=== PATIENT | male | born 1965 | race Caucasian/White ===

== ENCOUNTER 2023-10-20 07:50 | Outpatient (AMB) | payer MEDICAID, SELFPAY ==
--- NOTE | 2023-10-20 08:07 | A.OFFVIS_ITS ---
Intake Vital Signs 10/20/23 08:11 Height 5 ft 9 in Weight 196 lb BMI 28.9 BP 140/94 H Blood Pressure Location Lt brachial Position Sitting Pulse 115 H Intake Visit Reasons: Colonoscopy screening Intake Note: Patient 1st pre Colonoscopy screening. Patient denies any GI issues. Legal Administrator Required: Yes Legal Administrator Name: [id number] Accompanied by: Employee Allergies No Known Allergies Allergy (Verified 10/20/23 08:07) HPI HPI Comments History of Present Illness Details A 58 y/o male referred for colonoscopy- Accompanied by staff- he has a good appetite- has normal bowels . 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 [facility] Social History (Updated 10/20/23 @ 08:21 by Radha Longoria PA-C) Household Members Other:: [facility]-since 2010 Alcohol intake: never Patient Tobacco Use Status: Never used Tobacco Current occupational status: disabled Review of Systems Const Details: Per pt advocate - ROS negative Physical Exam Vital Signs: Last Vital Signs Pulse 115 H 10/20/23 08:11 BP 140/94 H 10/20/23 08:11 BMI result Body Mass Index 28.9 Const General: comfortable Nutritional Appearance: well nourished Limitations: altered mental status and language barrier Eyes Sclerae: sclerae normal Resp Effort & Inspection: normal respiratory effort Auscultation: clear to auscultation bilaterally, no rhonchi and no wheezes Cardio Rate: tachycardic Rhythm: regular rhythm Heart sounds: S1 normal heart sound present and S2 normal heart sound present GI Palpation (GI): Soft to palpation and nontender Auscultation: normal bowel sounds Skin General skin exam: no rashes or lesions noted Extrem General: Yes full ROM Psych Attitude: cooperative, Guarded attititude/behavior present and Avoids eye contact (attititude/behavior) Assessment & Plan Assessment & Plan (1) Poor historian: Comment: Unable to assess- pt advocate present- Code(s): Z78.9 - Other specified health status (2) Language barrier to communication: Code(s): Z78.9 - Other specified health status (3) Encounter for screening colonoscopy: Comment: Hold off on colonoscopy Code(s): Z12.11 - Encounter for screening for malignant neoplasm of colon Plan: cologuard- any input-will further discuss- (4) Unknown family medical history: Plan Cologuard- if positive - colonoscopy would to recommended Patient Instructions: Cologuard- if positive - colonoscopy would to recommended- Coding Level of Care Code New Pt Level 4 (60001) Diagnoses Poor historian Z78.9 Language barrier to communication Z78.9 Encounter for screening colonoscopy Z12.11 Unknown family medical history Time Spent (min) 30 Comment [id number]
[2023-10-20 08:11] VITALS: BP 140/94; PULSE 115; BMI 28.9
== END 2023-10-20 09:01 | disposition home or self-care (01) ==
PROVIDERS: PCP Hospitalist; Visit Provider Physician Assistant
DX: Z78.9 Other specified health status (principal); Z12.11 Encounter for screening for malignant neoplasm of colon
CPT/HCPCS: 99204

== ENCOUNTER → 2023-10-20 07:50 | Outpatient (BNVA) | payer MEDICAID, SELFPAY | PROVIDERS: PCP Hospitalist; Visit Provider Physician Assistant | DX: Z12.11 Encounter for screening for malignant neoplasm of colon (principal); Z78.9 Other specified health status | CPT/HCPCS: 99202 ==

== ENCOUNTER 2023-11-02 10:06 | Inpatient (IN) | payer MEDICAID, SELFPAY ==
[2023-11-02] VITALS (17 sets, daily range): BP systolic 112–138; BP diastolic 66–87; PULSE 95–119; RESP 14–28; TEMP 36.6–38.3; O2SAT 87–96; BMI 27.2
--- NOTE | ~2023-11-02 | CT_ITS ---
CT HEAD WITHOUT IV CONTRAST CT CERVICAL SPINE WITHOUT IV CONTRAST INDICATION: Fall. COMPARISON: None available. TECHNIQUE: Multidetector CT acquisitions of the head and cervical spine were obtained without IV contrast. Multiplanar reformats were acquired and utilized for image interpretation. This CT examination was performed using dose optimization techniques as appropriate, variously including the following: *Automated exposure control *Adjustment of mA and/or kV according to patient size (this includes techniques or standardized protocols for targeted exams where dose is matched to indication/reason for exam; i.e. extremities or head) *Use of iterative reconstruction technique FINDINGS: HEAD: There are postoperative changes following left parietotemporal craniotomy. There is chronic encephalomalacia and gliosis within the inferior right greater than left frontal lobe and the anterior left temporal lobe, likely the sequela of old trauma. There is severe lateral and third ventriculomegaly that is disproportionate to sulcal prominence with associated narrowing of the callosal angle that can be correlated for clinical signs of normal pressure hydrocephalus. There is no intracranial hemorrhage, hydrocephalus, extra-axial surface collection, midline shift, or other herniation pattern. Samson to white matter differentiation is diffusely maintained without evidence of an evolved acute territorial infarct. The basilar cisterns are preserved. There is a calcified pilomatricoma involving the high left frontal scalp. Chronic appearing traumatic deformity of the nasal bones bilaterally. CERVICAL SPINE: There is straightening of the cervical lordosis. Multilevel degenerative disc disease and hypertrophic facet arthropathy. There is diffuse idiopathic skeletal hyperostosis throughout the cervical spine. No acute fractures and no acute subluxations. Craniocervical junction is unremarkable. There is no prevertebral soft tissue swelling. CT/CT cervical spine wo IV con IMPRESSION: - No acute intracranial abnormality. There are chronic postoperative changes following left parietotemporal craniotomy. There is chronic encephalomalacia and gliosis within the inferior right greater than left frontal lobe and the anterior left temporal lobe, likely the sequela of old trauma. - There is severe lateral and third ventriculomegaly that is disproportionate to sulcal prominence with associated narrowing of the callosal angle that can be correlated for clinical signs of normal pressure hydrocephalus. - No acute osseous abnormality within the cervical spine. Cervical spondylosis. Diffuse idiopathic skeletal hyperostosis throughout the cervical spine.
--- NOTE | ~2023-11-02 | XR_ITS ---
EXAMINATION: XR CHEST CLINICAL INFORMATION: Cough, fever COMPARISON: None available. TECHNIQUE: Frontal view of the chest was obtained. FINDINGS: Lungs are hypoinflated, there is a patchy, ill-defined opacity at the left lung base. This could represent pneumonia. No definite effusion or edema. Normal cardiomediastinal silhouette. XR/XR chest 1V IMPRESSION: Patchy, ill-defined opacity at the left lung base which could represent pneumonia. Hypoinflation.
[2023-11-02 10:55] LABS: MANUAL DIFF FLAG NO
--- NOTE | 2023-11-02 10:58 | ED.GENADULT ---
HPI - General Adult General Chief complaint: Altered Mental Status Stated complaint: UNWITNESSED FALL Time Seen by Provider: 11/02/23 10:33 Source: patient, RN notes reviewed and director account management Mode of arrival: ambulatory Limitations: altered mental status History of Present Illness HPI narrative: A 58-year-old male came in from [facility] retirement for evaluation of change mental status. On arrival patient was hypoxic 87% on room air with no respiratory distress noted improved with 3.5 L of supplemental oxygen via nasal cannula, patient also found to be afebrile and tachycardic hence sepsis protocol was activated. Reported from retirement patient s/p mechanical fall last week and unwitnessed fall today. Patient has no complaint. Reviewed the retirement report patient lives independently and ambulate with a walker. Related Data Home Medications Medication Instructions Recorded Confirmed No Known Home Meds 10/20/23 10/20/23 Allergies Allergy/AdvReac Type Severity Reaction Status Date / Time No Known Allergies Allergy Verified 10/20/23 08:07 Review of Systems Review of Systems: Yes Unobtainable due to mental status [facility] Social History Social History (Updated 10/20/23 @ 08:21 by Radha Longoria PA-C) Household Members Other:: [facility]-since 2010 Alcohol intake: never Patient Tobacco Use Status: Never used Tobacco Smoked in Last 30 Days: No Advance Directives: No Advance Directives Information Provided: No Current occupational status: disabled Physical Exam ED Vital Signs: Vital Signs - 24 hr 11/02/23 10:21 11/02/23 11:32 11/02/23 12:20 Temperature 101 F H Pulse Rate 119 H 106 H 99 Respiratory Rate 20 26 H 20 Blood Pressure 116/83 125/81 125/79 Pulse Oximetry 87 L 93 92 Oxygen Delivery Method Room Air Nasal Cannula Nasal Cannula Oxygen Flow Rate 4 4 11/02/23 12:35 11/02/23 14:00 11/02/23 14:03 Temperature 99.4 F 99.4 F Pulse Rate 96 107 H Respiratory Rate 23 H 24 H Blood Pressure 122/80 133/81 Pulse Oximetry 93 95 Oxygen Delivery Method Nasal Cannula Nasal Cannula Oxygen Flow Rate 4 4 11/02/23 14:24 11/02/23 14:54 Temperature Pulse Rate 104 H 110 H Respiratory Rate 14 16 Blood Pressure 115/73 134/82 Pulse Oximetry 93 93 Oxygen Delivery Method Nasal Cannula Nasal Cannula Oxygen Flow Rate 4 4 BMI result Body Mass Index 27.2 Vital signs have been reviewed and appear to be correct. Blood pressure elevated. Heart rate elevated. Respiratory rate normal. Temperature elevated. Oxygen saturation normal. Appearance: Alert. Disoriented, No acute distress. Head: Normal external exam. Normocephalic. Atraumatic. No Hanson signs noted. No raccoon eyes noted Eyes: PERRLA. EOMI. Conjunctiva and sclera normal. Eyelids normal. ENT: TM's Normal. Pharynx normal. Uvula midline. Moist mucous membranes. No trismus noted. No drooling noted. No muffled voice noted. Neck: Normal inspection. Neck supple. FROM. No adenopathy. Thyroid Normal. No meningeal signs. No neck mass noted. CVS: Normal heart rate and rhythm. Heart sound normal. No murmurs noted. Pulses normal throughout. Respiratory: No respiratory distress. Painless inspiration. Breath sounds normal. No wheezes/rales/rhonchi noted. Chest nontender. No accessory muscle usage noted or decreased air movement noted. Abdomen: Soft and nontender. Bowel sounds normal in all 4 quadrants. No distention noted. No organomegaly noted. No visible injury noted. Back: No CVA tenderness. Full range of motion noted. Skin: Skin warm and dry. Normal skin color. Normal skin turgor. No rashes/lesions/lacerations noted. Extremities: No lower extremity edema. Extremities exhibit normal range of motion. Extremities nontender. Neuro: Oriented X 3. Cranial nerve exam: II-XII are grossly intact No motor deficit. No sensory deficit. Reflexes normal. Course Reevaluation(s) Reevaluation #1: 58-year-old male from retirement came in for mental status change. Found to have a pneumonia with sepsis and hypoxia patient received Zosyn/Zithromax for pneumonia. No severe sepsis or septic shock lactic acidosis is secondary to dehydration and rhabdomyolysis. Patient also is in rhabdomyolysis with elevated CPK receiving IV fluids. Time: 15:19 Medications Administered Discontinued Medications Generic Name Dose Route Start Last Admin Trade Name Freq PRN Reason Stop Dose Admin Acetaminophen 650 mg 11/02/23 11:18 11/02/23 11:22 Acetaminophen 325 Mg Tablet PO 11/02/23 11:19 650 mg ONCE ONE Administration Piperacillin Sod/Tazobactam 50 mls @ 100 mls/hr 11/02/23 11:13 11/02/23 11:52 Sod 3.375 gm/ Sodium Chloride IV 11/02/23 11:42 Infused ONCE ONE Infusion Sodium Chloride 1,000 mls @ 999 mls/hr 11/02/23 11:14 11/02/23 12:16 Ns IV 11/02/23 12:14 Infused .Q1H1M ONE Infusion Sodium Chloride 1,000 mls @ 999 mls/hr 11/02/23 12:47 11/02/23 14:20 Ns IV 11/02/23 13:47 Infused .Q1H1M ONE Infusion Medical Decision Making Differential Diagnosis Differential Diagnoses: The differential diagnosis associated with the presentation includes (Pneumonia, pneumothorax, pleural effusion, severe anemia, electrolyte derangement, rhabdomyolysis, intracranial bleed, cervical spine injury, hypoxia.) Admission/Observation Consideration of admission/observation: Escalation of care including admission/observation considered Consult Healthcare Provider Management of the patient was discussed with: Hospitalist (Dr. Cool) Lab Data MDM Lab Attestation statement: I reviewed the patient's lab results. 11/02/23 10:49 11/02/23 10:49 Labs: Lab Results 11/02/23 11/02/23 11/02/23 Range/Units 10:49 11:02 11:27 WBC 3.7 L (4.8-10.8) X10*3/uL RBC 4.76 (4.60-5.80) X10*6/uL Hgb 14.5 (14.0-18.0) g/dl Hct 42.4 (42.0-52.0) % MCV 89.1 (80.0-98.0) fL MCH 30.5 (27.0-33.0) pg MCHC 34.2 (31.0-36.0) g/dl RDW 12.6 (11.0-16.0) % Plt Count 140 L (160-400) X10*3/uL MPV 9.5 (9.4-12.4) fL Immature Gran % (Auto) 0.3 (0.0-0.4) % Neut % (Auto) 59.5 (45-73) % Lymph % (Auto) 24.1 (20-40) % [place] % (Auto) 15.3 H (2-11) % Eos % (Auto) 0.3 (0-4) % Baso % (Auto) 0.5 (0-2) % Lymph # (Auto) 0.9 L (1.2-4.9) X10*3/uL [place] # (Auto) 0.6 (0.1-1.2) X10*3/uL Eos # (Auto) 0.0 (0.0-0.4) X10*3/uL Baso # (Auto) 0.0 (0.0-0.2) X10*3/uL Abs Immat Gran (auto) 0.01 (0.00-0.03) X10*3/uL Absolute Neuts (auto) 2.2 (2.0-8.3) x10*3/uL Absolute Nucleated RBC 0.000 (0.0-0.012) X10*3/uL Nucleated RBC % (auto) 0.0 (0.0-0.2) /100WBC Sodium 141 (135-145) mmol/L Potassium 3.6 (3.3-5.1) mmol/L Chloride 108 (96-108) mmol/L Carbon Dioxide 22 (22-29) mmol/L Anion Gap 15 (12-20) BUN 11 (9-16) mg/dL Creatinine 0.82 (0.5-1.4) mg/dL Estim Creat Clear Calc 102.6 Estimated GFR > 60 Random Glucose 116 H (60-115) mg/dL Lactic Acid 2.5 H* (0.5-2.0) mmol/L Lactic Acid F/U @ 2Hr (0.5-2.0) mmol/L Calcium 8.7 (8.4-10.2) mg/dL Total Bilirubin 0.3 (0.0-1.0) mg/dL AST 35 (5-37) U/L ALT 29 (0-40) U/L Alkaline Phosphatase 59 (39-117) U/L Total Creatine Kinase 1674 H (38-174) U/L Total Protein 6.4 L (6.5-8.0) g/dL Albumin 3.9 (3.5-5.0) g/dL Urine Color Dark Yellow Urine Appearance Clear Urine pH 7.0 (5.0-9.0) Ur Specific [place] >= 1.030 H (1.005-1.025) Urine Protein Trace (Neg-Trace) mg/dL Urine Glucose (UA) Negative (Negative) mg/dL Urine Ketones 15 (Negative) mg/dL Urine Blood Negative (Negative) Urine Nitrite Negative (Negative) Ur Leukocyte Esterase Trace H (Negative) Urine RBC 0-2 (0-2) /HPF Urine WBC 0-5 (0-5) /HPF Ur Squamous Epith Cells 0-2 (0-2) /HPF Urine Bacteria None Seen (None Seen) Hyaline Casts 0-2 (0-2) /LPF Influenza Type A (PCR) NEGATIVE (Negative) Influenza Type B (PCR) NEGATIVE (Negative) RSV RNA Qual (PCR) NEGATIVE (Negative) SARS-CoV-2 RNA (RT-PCR) NEGATIVE (Negative) 11/02/23 Range/Units 14:02 WBC (4.8-10.8) X10*3/uL RBC (4.60-5.80) X10*6/uL Hgb (14.0-18.0) g/dl Hct (42.0-52.0) % MCV (80.0-98.0) fL MCH (27.0-33.0) pg MCHC (31.0-36.0) g/dl RDW (11.0-16.0) % Plt Count (160-400) X10*3/uL MPV (9.4-12.4) fL Immature Gran % (Auto) (0.0-0.4) % Neut % (Auto) (45-73) % Lymph % (Auto) (20-40) % [place] % (Auto) (2-11) % Eos % (Auto) (0-4) % Baso % (Auto) (0-2) % Lymph # (Auto) (1.2-4.9) X10*3/uL [place] # (Auto) (0.1-1.2) X10*3/uL Eos # (Auto) (0.0-0.4) X10*3/uL Baso # (Auto) (0.0-0.2) X10*3/uL Abs Immat Gran (auto) (0.00-0.03) X10*3/uL Absolute Neuts (auto) (2.0-8.3) x10*3/uL Absolute Nucleated RBC (0.0-0.012) X10*3/uL Nucleated RBC % (auto) (0.0-0.2) /100WBC Sodium (135-145) mmol/L Potassium (3.3-5.1) mmol/L Chloride (96-108) mmol/L Carbon Dioxide (22-29) mmol/L Anion Gap (12-20) BUN (9-16) mg/dL Creatinine (0.5-1.4) mg/dL Estim Creat Clear Calc Estimated GFR Random Glucose (60-115) mg/dL Lactic Acid (0.5-2.0) mmol/L Lactic Acid F/U @ 2Hr 1.0 (0.5-2.0) mmol/L Calcium (8.4-10.2) mg/dL Total Bilirubin (0.0-1.0) mg/dL AST (5-37) U/L ALT (0-40) U/L Alkaline Phosphatase (39-117) U/L Total Creatine Kinase (38-174) U/L Total Protein (6.5-8.0) g/dL Albumin (3.5-5.0) g/dL Urine Color Urine Appearance Urine pH (5.0-9.0) Ur Specific [place] (1.005-1.025) Urine Protein (Neg-Trace) mg/dL Urine Glucose (UA) (Negative) mg/dL Urine Ketones (Negative) mg/dL Urine Blood (Negative) Urine Nitrite (Negative) Ur Leukocyte Esterase (Negative) Urine RBC (0-2) /HPF Urine WBC (0-5) /HPF Ur Squamous Epith Cells (0-2) /HPF Urine Bacteria (None Seen) Hyaline Casts (0-2) /LPF Influenza Type A (PCR) (Negative) Influenza Type B (PCR) (Negative) RSV RNA Qual (PCR) (Negative) SARS-CoV-2 RNA (RT-PCR) (Negative) Independent Interpretation I performed an independent interpretation of an: Plain X-Ray (Patchy, ill-defined opacity at the left lung base which could represent pneumonia. Hypoinflation. ) and CT Scan (Head/C-spine:No acute intracranial abnormality. There are chronic postoperative changes following left parietotemporal craniotomy. There is chronic encephalomalacia and gliosis within the inferior right greater than left frontal lobe and the anterior left temporal lobe, likely the sequela of old tra) Radiology Impression Discussion of test interpretation with radiology: I have reviewed the radiologist's reading. Chronic Conditions Patient?s care impacted by: Other (Dementia, risk of falls.) Discharge Plan Discharge Clinical Impression: Altered mental status, Hypoxia, Pneumonia, Rhabdomyolysis Patient Disposition: Admitted As Inpatient
[2023-11-02 11:06] LABS: Basophils Percent Auto 0.5 % (0-2); Eosinophils Percent Auto 0.3 % (0-4); Hematocrit 42.4 % (42.0-52.0); Hemoglobin 14.5 g/dl (14.0-18.0); Imm Gran Abs Auto 0.01 X10*3/uL (0.00-0.03); Imm Gran Pct Auto 0.3 % (0.0-0.4); Lymphocytes Absolute Auto 0.9 X10*3/uL (1.2-4.9); Lymphocytes Percent Auto 24.1 % (20-40); Mean Corpuscular HGB Conc 34.2 g/dl (31.0-36.0); Mean Corpuscular Hemoglobin 30.5 pg (27.0-33.0); Mean Corpuscular Volume 89.1 fL (80.0-98.0); Mean Platelet Volume 9.5 fL (9.4-12.4); Monocytes Absolute Auto 0.6 X10*3/uL (0.1-1.2); Monocytes Percent Auto 15.3 % (2-11); Neutrophils Absolute Auto 2.2 x10*3/uL (2.0-8.3); Neutrophils Percent Auto 59.5 % (45-73); Platelet Count 140 X10*3/uL (160-400); Red Blood Count 4.76 X10*6/uL (4.60-5.80); Red Cell Distribution Width 12.6 % (11.0-16.0); White Blood Count 3.7 X10*3/uL (4.8-10.8)
[2023-11-02 11:14] LABS: Lactic Acid 2.5 mmol/L (0.5-2.0)
[2023-11-02 11:16] LABS: Alanine Aminotransferase 29 U/L (0-40); Albumin Level 3.9 g/dL (3.5-5.0); Alkaline Phosphatase 59 U/L (39-117); Anion Gap 15 (12-20); Aspartate Amino Transferase 35 U/L (5-37); Bilirubin Total 0.3 mg/dL (0.0-1.0); Blood Urea Nitrogen 11 mg/dL (9-16); Calcium 8.7 mg/dL (8.4-10.2); Carbon Dioxide 22 mmol/L (22-29); Chloride 108 mmol/L (96-108); Creatinine Clr Calc Pharmacy 102.6; Estimated Glomerular Filt Rate > 60; Glucose Random 116 mg/dL (60-115); Potassium 3.6 mmol/L (3.3-5.1); Sodium 141 mmol/L (135-145); Total Protein 6.4 g/dL (6.5-8.0)
[2023-11-02] MEDS: Acetaminophen 325 MG TABLET 650 MG PO (11:22)
[2023-11-02] MEDS: Piperacillin Sodium/Tazobactam 3.375 GM in 0.9 % Sodium Chloride 50 ML IV (11:22)
[2023-11-02] MEDS: 0.9 % Sodium Chloride 1,000 ML 999 ML IV ×3 (11:22→15:59)
[2023-11-02 11:48] LABS: Appearance Urine Clear; Color Urine Dark Yellow; Glucose Urine UA Negative (Negative); Leukocyte Esterase Urine Trace (Negative); Nitrite Urine Negative (Negative); Specific Gravity - Urine >= 1.030 (1.005-1.025); UMIC TRIGGER UACC YES; Urine Blood Negative (Negative); Urine Ketones 15 mg/dL (Negative); Urine Protein Trace mg/dL (Neg-Trace)
[2023-11-02 11:57] LABS: Bacteria Urine None Seen (None Seen); Hyaline Casts Urine 0-2 /LPF (0-2); RBC Urine 0-2 /HPF (0-2); Squamous Epithelial Cell Urine 0-2 /HPF (0-2); WBC Urine 0-5 /HPF (0-5)
[2023-11-02 12:02] LABS: Influenza A PCR NEGATIVE (Negative); Influenza B PCR NEGATIVE (Negative); Resp Syncy Virus RNA Qual PCR NEGATIVE (Negative); SARS COV2 PCR INHOUSE NEGATIVE (Negative)
[2023-11-02 12:54] LABS: Reflex Lactate? Lactic Acid Added
[2023-11-02] MEDS: Azithromycin 500 MG in 0.9 % Sodium Chloride 250 ML 125 MG IV (15:59)
--- NOTE | 2023-11-02 16:05 | PC.NURSE ---
PT INCREASINGLY RESTLESS SINCE ARRIVAL TO FACILITY, PULLING LEADS AND O2 TUBING OFF, ATTEMPTING TO LEAVE STRETCHER. HE IS DIFFICULT TO REDIRECT GIVEN LANGUAGE BARRIER AND COGNITIVE DEFICITS. RESP REMAIN EVEN, NONLABOURED, SKIN PWD. CAMERA PLACED AT BEDSIDE FOR SAFETY. NO MED LIST ARRIVED WITH PT TODAY, FACILITY TO BE CONTACTED FOR UPDATED LIST.
--- NOTE | 2023-11-02 16:10 | PM.IMHP ---
History of Present Illness Date of Service: 11/02/23 Attending physician on admission: [facility] Chief Complaint: fall, ams 58-year-old male with history hyperlipidemia, mood disorder, hypertension, dysphagia, hypertensive retinopathy, cataract presented to the ED from [facility] where he resides due to altered mental status and unwitnessed fall. The patient is Upper Sorbian speaking only and groover and turner [id number], Ramesh, was used for Upper Sorbian interpretation. The patient is a limited historian and reports he feels fine and does not know why he is in the hospital. Per facility report, the patient was found on the ground after an unspecified period of time and was altered from baseline. At baseline, patient is conversive, ambulating with walker. Vitals were stable at facility. However on arrival, patient was hypoxic to 88% was placed on 4 L supplemental O2 maintaining oximetry 93-94%. On exam, patient is refusing to wears oxygen and oxygen levels continue to dip to 88-89% on room air but then normalized to 90-92%. He is tachycardic to 110 and was febrile to 101 on arrival. He has been intermittently tachypneic. No hypotension. He is leukopenic to 3.7. Renal function normal, electrolyte levels normal. Initial lactic acid 2.5, repeat 1. Total CK 1674. Urinalysis unremarkable. Negative for influenza, COVID-19, RSV. Head CT negative for any acute intracranial abnormality shows chronic postoperative changes following left parietotemporal craniotomy with chronic encephalomalacia and gliosis. There is also severe lateral and 3rd ventriculomegaly that is disproportionate to sulcal prominence with associated narrowing of the callosal angle that can be correlated for clinical signs of normal pressure hydrocephalus. CT cervical spine negative for any osseous abnormality. CXR shows patchy, ill-defined opacity at left lung base possibly representing pneumonia. Review of Systems Review of Systems: Yes Unobtainable due to mental status [facility] Medical History (Updated 11/02/23 @ 16:33 by JAYLENE Bryant) Mood disorder Dysphagia Hyperlipidemia Cataract Hypertensive retinopathy Hypertension Surgical History (Updated 11/02/23 @ 16:33 by JAYLENE Bryant) S/P craniotomy Social History (Updated 10/20/23 @ 08:21 by Radha Longoria PA-C) Household Members Other:: [facility]-since 2010 Alcohol intake: never Patient Tobacco Use Status: Never used Tobacco Smoked in Last 30 Days: No Advance Directives: No Advance Directives Information Provided: No Current occupational status: disabled Meds Allergies Allergy/AdvReac Type Severity Reaction Status Date / Time No Known Allergies Allergy Verified 10/20/23 08:07 Active Medications: Current Medications Azithromycin 500 mg/ Sodium (Chloride) 250 mls @ 125 mls/hr IV ONCE ONE Stop: 11/02/23 17:02 Last Admin: 11/02/23 15:59 Dose: 125 mls/hr Home Medications Medication Instructions Recorded Confirmed Last Taken Type acetaminophen 325 mg tablet 650 mg PO Q4H PRN Fever Or Pain 11/02/23 11/02/23 Unknown History atorvastatin 10 mg tablet 10 mg PO DAILY 11/02/23 11/02/23 Unknown History bisacodyl 10 mg rectal suppository 10 mg GA DAILY PRN Constipation 11/02/23 11/02/23 Unknown History clozapine 100 mg tablet 100 mg PO BEDTIME 11/02/23 11/02/23 11/01/23 History divalproex 250 mg tablet,delayed 250 mg PO BID 11/02/23 11/02/23 Unknown History release docusate sodium 100 mg capsule 100 mg PO BID 11/02/23 11/02/23 Unknown History ketoconazole 2 % shampoo 1 appl topical MOWEFR 11/02/23 11/02/23 Unknown History lactulose 10 gram/15 mL oral 20 g PO BID 11/02/23 11/02/23 Unknown History solution metoprolol succinate 25 mg 25 mg PO DAILY 11/02/23 11/02/23 Unknown History tablet,extended release 24 hr phenylephrine-shark liver 1 appl GA Q8H PRN rectal bleeding 11/02/23 11/02/23 Unknown History oil-mineral oil-petrolatum rectal ointment (Hemorrhoidal ointment) sennosides 8.6 mg tablet (senna) 8.6 mg PO BID 11/02/23 11/02/23 Unknown History sennosides 8.6 mg tablet (senna) 8.6 mg PO DAILY PRN Constipation 11/02/23 11/02/23 Unknown History sodium phosphates 19 gram-7 118 ml GA DAILY PRN Constipation 11/02/23 11/02/23 Unknown History gram/118 mL enema (Fleet Enema) Physical Exam Vital Signs and Narrative: Vital Signs: Last Vital Signs Temp 99.4 F 11/02/23 14:03 Pulse 110 H 11/02/23 14:54 Resp 16 11/02/23 14:54 BP 134/82 11/02/23 14:54 Pulse Ox 93 11/02/23 14:54 O2 Del Method Nasal Cannula 11/02/23 14:54 O2 Flow Rate 4 11/02/23 14:54 BMI result Body Mass Index 27.2 Constitutional - Awake and Alert, No apparent distress Eyes - PERRLA, EOMI Cardiovascular - S1S2, RRR, No edema Respiratory - Normal lung expansion, Normal respiratory effort, No respiratory distress, CTA bilaterally Gastrointestinal - NT / ND; +BS; No rebound or guarding Extremities - no calf tenderness bilaterally, no swelling Skin - Warm/Dry Neurological - Alert & oriented to self only, limited historian, answers y/n questions but unable to elaborate why he is in the hospital Psychological - Appropriate affect Results Labs 11/02/23 10:49 11/02/23 10:49 Labs: Laboratory Results - last 24 hr 11/02/23 11/02/23 11/02/23 10:49 11:02 11:27 MCV 89.1 MCH 30.5 MCHC 34.2 RDW 12.6 Plt Count 140 L MPV 9.5 Immature Gran % (Auto) 0.3 Neut % (Auto) 59.5 Lymph % (Auto) 24.1 [place] % (Auto) 15.3 H Eos % (Auto) 0.3 Baso % (Auto) 0.5 Lymph # (Auto) 0.9 L [place] # (Auto) 0.6 Eos # (Auto) 0.0 Baso # (Auto) 0.0 Abs Immat Gran (auto) 0.01 Absolute Neuts (auto) 2.2 Absolute Nucleated RBC 0.000 Nucleated RBC % (auto) 0.0 Anion Gap 15 Estim Creat Clear Calc 102.6 Estimated GFR > 60 Random Glucose 116 H Lactic Acid 2.5 H* Lactic Acid F/U @ 2Hr Calcium 8.7 Total Bilirubin 0.3 AST 35 ALT 29 Alkaline Phosphatase 59 Total Creatine Kinase 1674 H Total Protein 6.4 L Albumin 3.9 Urine Color Dark Yellow Urine Appearance Clear Urine pH 7.0 Ur Specific [place] >= 1.030 H Urine Protein Trace Urine Glucose (UA) Negative Urine Ketones 15 Urine Blood Negative Urine Nitrite Negative Ur Leukocyte Esterase Trace H Urine RBC 0-2 Urine WBC 0-5 Ur Squamous Epith Cells 0-2 Urine Bacteria None Seen Hyaline Casts 0-2 Influenza Type A (PCR) NEGATIVE Influenza Type B (PCR) NEGATIVE RSV RNA Qual (PCR) NEGATIVE SARS-CoV-2 RNA (RT-PCR) NEGATIVE 11/02/23 14:02 MCV MCH MCHC RDW Plt Count MPV Immature Gran % (Auto) Neut % (Auto) Lymph % (Auto) [place] % (Auto) Eos % (Auto) Baso % (Auto) Lymph # (Auto) [place] # (Auto) Eos # (Auto) Baso # (Auto) Abs Immat Gran (auto) Absolute Neuts (auto) Absolute Nucleated RBC Nucleated RBC % (auto) Anion Gap Estim Creat Clear Calc Estimated GFR Random Glucose Lactic Acid Lactic Acid F/U @ 2Hr 1.0 Calcium Total Bilirubin AST ALT Alkaline Phosphatase Total Creatine Kinase Total Protein Albumin Urine Color Urine Appearance Urine pH Ur Specific [place] Urine Protein Urine Glucose (UA) Urine Ketones Urine Blood Urine Nitrite Ur Leukocyte Esterase Urine RBC Urine WBC Ur Squamous Epith Cells Urine Bacteria Hyaline Casts Influenza Type A (PCR) Influenza Type B (PCR) RSV RNA Qual (PCR) SARS-CoV-2 RNA (RT-PCR) Imaging Radiologist's Impressions: Impressions Cervical Spine CT 11/02/23 11:16 IMPRESSION: - No acute intracranial abnormality. There are chronic postoperative changes following left parietotemporal craniotomy. There is chronic encephalomalacia and gliosis within the inferior right greater than left frontal lobe and the anterior left temporal lobe, likely the sequela of old trauma. - There is severe lateral and third ventriculomegaly that is disproportionate to sulcal prominence with associated narrowing of the callosal angle that can be correlated for clinical signs of normal pressure hydrocephalus. - No acute osseous abnormality within the cervical spine. Cervical spondylosis. Diffuse idiopathic skeletal hyperostosis throughout the cervical spine. Head CT 11/02/23 11:16 IMPRESSION: - No acute intracranial abnormality. There are chronic postoperative changes following left parietotemporal craniotomy. There is chronic encephalomalacia and gliosis within the inferior right greater than left frontal lobe and the anterior left temporal lobe, likely the sequela of old trauma. - There is severe lateral and third ventriculomegaly that is disproportionate to sulcal prominence with associated narrowing of the callosal angle that can be correlated for clinical signs of normal pressure hydrocephalus. - No acute osseous abnormality within the cervical spine. Cervical spondylosis. Diffuse idiopathic skeletal hyperostosis throughout the cervical spine. Chest X-Ray 11/02/23 11:21 IMPRESSION: Patchy, ill-defined opacity at the left lung base which could represent pneumonia. Hypoinflation. Assessment and Plan (1) Pneumonia: Status: Acute (2) Hypoxia: Status: Acute (3) Altered mental status: Status: Acute Plan 58-year-old male with history hyperlipidemia, mood disorder, hypertension, dysphagia, hypertensive retinopathy, cataract presented to the ED from [facility] where he resides admitted for pneumonia with acute hypoxemic respiratory #Acute pneumonia with acute hypoxemic respiratory failure and sepsis -febrile to 101, tachycardic, leukopenic to 3.7, tachypneic. Lactic acidosis due to dehydration, not severe sepsis. No end-organ damage. No severe sepsis/shock -IV ceftriaxone and azithromycin (initiated 11/01) -strep pneumo antigen, Legionella antigen, sputum culture pending -symptomatic management -follow CBC, cultures -continue supplemental O2 to maintain oximetry greater than 92% #Acute metabolic encephalopathy -due to above -restless, trying to get out of bed, mumbling, pulling off oxygen -limited improvement with 2mg ativan, given 10mg IM zyprexa for patient's safety and health #Elevated CK -due to unwitnessed fall. No myalgias, not consistent with rhabdomyolysis -continue IVF -follow CK # unwitnessed fall -CT head shows possible evidence of NPH -neurology consult # hypertension -blood pressure reasonably controlled -continue metoprolol # unspecified mood disorder s/p craniotomy -continue Depakote, Clozaril -last Clozaril level 168 at facility # HLD -statin DVT prophylaxis-Lovenox Full code Guardianship patient-Amy got about, [phone] Patient requires inpatient stay at least 2 midnights for management of acute pneumonia with acute hypoxemic respiratory failure and sepsis requiring IV antibiotics, close monitoring of mental status, supplemental O2 Quality Stroke Does the patient have a stroke diagnosis?: No VTE Prior VTE?: No VTE Risk Level:: Medical - moderate - high VTE Device Contraindication: Treatment Not Indicated VTE Drug Contraindication: N/A - Med Ordered
--- NOTE | 2023-11-02 16:28 | PHA.MEDREC ---
Pharmacy Consult ? Medication Reconciliation Pharmacy has completed the medication reconciliation. used list from [facility] in [place].
[2023-11-02] MEDS: LORazepam 2 MG/ML VIAL IVPUSH (17:15)
[2023-11-02] MEDS: Enoxaparin Sodium 40 MG/0.4 ML SYRINGE SUBCUT (17:15)
--- NOTE | 2023-11-02 17:18 | PC.NURSE ---
Patient increasingly restless on stretcher, provider contacted for 1x ativan dose, given per mar. Patient continues to have camera observation.
[2023-11-02] MEDS: 0.9 % Sodium Chloride 1,000 ML 80 ML IVCONT (18:04)
--- NOTE | 2023-11-02 18:59 | PC.NURSE ---
On coming ARLENE Ga informed on IM Zyprexa order for restlessness.
--- NOTE | 2023-11-02 19:23 | MHC.EDTECH ---
Tech resumed care at 1900. PT found trying to get up and struggling to put blankets on. PT out of breath from moving around. PT was easily redirectable at this time. Tech put blankets back on PT, check bed to be dry and vitals taken at this time.
[2023-11-02] MEDS: methylPREDNISolone Sod Succ 40 MG/ML VIAL IVPUSH (19:30)
[2023-11-02] MEDS: cefTRIAXone sodium 1 GM in 0.9 % Sodium Chloride 50 ML IV (19:30)
[2023-11-02] MEDS: OLANZapine 10 MG VIAL IM (19:30)
--- NOTE | 2023-11-02 19:30 | PC.NURSE ---
Pt is restless, pulling at the cords and equipment, attempting to remove IV line and getting out of bed. Not following commands. Medicated with Zyprexa as ordered. Pt tolerated well. Video monitor in place. Monitoring is ongoing.
--- NOTE | 2023-11-02 19:45 | PC.NURSE ---
Pt continues to be restless. Not following commands. Attempting to get out of bed. VSS. Monitoring is ongoing.
--- NOTE | 2023-11-02 20:00 | PC.NURSE ---
Pt is sleeping at the bedside. No apparent distress noted. VSS. Breaths are even regular and unlabored with equal chest rises. Monitoring is ongoing.
--- NOTE | 2023-11-02 22:20 | PC.NURSE ---
Pt is sleeping at the bedside in no apparent distress. Unable to medicate PO 2100 meds. [place] text sent to Dr. Caba who orders meds can be held at this time except Depakote. New order for Depakote IV entered in the OCT. Pt medicated as ordered.
[2023-11-02] MEDS: Valproic Acid (as Sodium Salt) 250 MG in Dextrose 5 % 50 ML 52.5 MG IV (23:12)
[2023-11-03] VITALS (9 sets, daily range): BP systolic 98–140; BP diastolic 61–96; PULSE 82–103; RESP 16–24; TEMP 35.9–37.1; O2SAT 90–96
--- NOTE | 2023-11-03 03:38 | PC.NURSE ---
Pt incontinent of urine. Complete bed change and perineal care provided.
[2023-11-03 04:46] LABS: MANUAL DIFF FLAG NO
[2023-11-03 04:48] LABS: Basophils Percent Auto 0.2 % (0-2); Hematocrit 44.7 % (42.0-52.0); Hemoglobin 15.2 g/dl (14.0-18.0); Imm Gran Abs Auto 0.02 X10*3/uL (0.00-0.03); Imm Gran Pct Auto 0.3 % (0.0-0.4); Lymphocytes Absolute Auto 0.6 X10*3/uL (1.2-4.9); Lymphocytes Percent Auto 10.5 % (20-40); Mean Corpuscular Volume 91.2 fL (80.0-98.0); Mean Platelet Volume 10.3 fL (9.4-12.4); Monocytes Absolute Auto 0.4 X10*3/uL (0.1-1.2); Monocytes Percent Auto 7.3 % (2-11); Neutrophils Absolute Auto 4.8 x10*3/uL (2.0-8.3); Neutrophils Percent Auto 81.7 % (45-73); Platelet Count 128 X10*3/uL (160-400); Red Cell Distribution Width 12.7 % (11.0-16.0); White Blood Count 5.9 X10*3/uL (4.8-10.8)
[2023-11-03 05:08] LABS: Anion Gap 14 (12-20); Blood Urea Nitrogen 6 mg/dL (9-16); Calcium 8.7 mg/dL (8.4-10.2); Carbon Dioxide 25 mmol/L (22-29); Chloride 104 mmol/L (96-108); Creatinine Clr Calc Pharmacy 105.1; Estimated Glomerular Filt Rate > 60; Glucose Random 123 mg/dL (60-115); Potassium 4.6 mmol/L (3.3-5.1); Sodium 138 mmol/L (135-145)
[2023-11-03] MEDS: 0.9 % Sodium Chloride 1,000 ML 80 ML IVCONT ×2 (06:05→17:07)
[2023-11-03] MEDS: methylPREDNISolone Sod Succ 40 MG/ML VIAL IVPUSH ×2 (06:05→17:17)
--- NOTE | 2023-11-03 10:13 | MHC.CM.PN ---
PT IS A LTC RESIDENT OF [facility] CONTACTED PTS GUARDIAN, RAÚL LUU [phone] COPY OF GUARDIANSHIP REQUESTED FROM SNF PCP: KIET BUCKNER DCP: RETURN TO [facility]IA BLS PT HAS [place] MEDICAID ONLY
--- NOTE | 2023-11-03 10:13 | PC.NURSE ---
Pt remains sleeping, attempts to wake him up, pt responds and then goes back to sleep. Meds late due to pt sleeping. Vital signs assessed and are stable. Breathing even and unlabored, skin WNL.
--- NOTE | 2023-11-03 10:48 | PC.NURSE ---
Admitting provider aware of pts status, continues to sleep at this time.
--- NOTE | 2023-11-03 11:24 | P.PNIM_ITS ---
Subjective Subjective Date of Service: 11/03/23 Interval History: Seen in follow up for pneumonia, hypoxia Interval history: Somnolent but arousable, irritable. Discussed with Dr. Enrique, patient limited historian and minimally verbal at baseline. Review of Systems Review of Systems: Yes Unobtainable due to mental status Physical Exam 2 Vital Signs: Vital Signs: Last Vital Signs Temp 96.7 F L 11/03/23 10:11 Pulse 82 11/03/23 10:11 Resp 18 11/03/23 10:11 BP 110/75 11/03/23 10:11 Pulse Ox 93 11/03/23 10:11 O2 Del Method Nasal Cannula 11/03/23 10:11 O2 Flow Rate 4 11/03/23 10:11 BMI result Body Mass Index 27.2 Constitutional - Awake and Alert, No apparent distress Eyes - PERRLA, EOMI Cardiovascular - S1S2, RRR, No edema Respiratory - Normal lung expansion, Normal respiratory effort, No respiratory distress on 2L supplemental O2, coarse expiratory wheezing bilaterally Gastrointestinal - NT / ND; +BS; No rebound or guarding Extremities - no calf tenderness bilaterally, no swelling Skin - Warm/Dry Neurological - Alert & oriented x3 Psychological - Appropriate affect Objective Data Active Medications Acetaminophen (Acetaminophen 325 Mg Tablet) 650 mg PO Q6H PRN PRN Reason: Pain, Mild (Pain Scale 1-3) Albuterol/Ipratropium (Albuterol/Iprat 2.5/0.5mg 3 Ml Ampul.Neb) 3 ml INHALE RQ4H WHILE AWAKE [facility] Atorvastatin Calcium (Atorvastatin Calcium 10 Mg Tablet) 10 mg PO DAILY [facility] Bisacodyl (Bisacodyl 10 Mg Supp.Rect) 10 mg MD DAILY PRN PRN Reason: Constipation Clozapine (Clozapine 100 Mg Tablet) 100 mg PO BEDTIME [facility] Last Admin: 11/02/23 23:10 Dose: Not Given Documented By: GRISELDA Non-Admin Reason: Patient Asleep Divalproex Sodium (Divalproex Sodium 250 Mg Tablet.) 250 mg PO BID [facility] Last Admin: 11/02/23 23:10 Dose: Not Given Documented By: GRISELDA Non-Admin Reason: Patient Asleep Docusate Sodium (Docusate Sodium 100 Mg Capsule) 100 mg PO BID [facility] Last Admin: 11/02/23 23:11 Dose: Not Given Documented By: GRISELDA Non-Admin Reason: Patient Asleep Enoxaparin Sodium (Enoxaparin Sodium 40 Mg/0.4 Ml Syringe) 40 mg SUBCUT Q24H [facility] Last Admin: 11/02/23 17:15 Dose: 40 mg Documented By: LALO Ceftriaxone Sodium 1 gm/ (Sodium Chloride) 50 mls @ 100 mls/hr IV Q24H [facility] Last Infusion: 11/02/23 20:21 Dose: Infused Documented By: GRISELDA Azithromycin 500 mg/ Sodium (Chloride) 250 mls @ 125 mls/hr IV Q24H [facility] Sodium Chloride (Ns) 1,000 mls @ 80 mls/hr IVCONT .[id number] [facility] Last Admin: 11/03/23 06:05 Dose: 80 mls/hr Documented By: GRISELDA Lactulose (Lactulose 20 Gm/30 Ml Solution) 20 gm PO BID [facility] Last Admin: 11/02/23 23:11 Dose: Not Given Documented By: GRISELDA Non-Admin Reason: Patient Asleep Methylprednisolone Sodium Succinate (Methylprednisolone Sod Succ 40 Mg/Ml Vial) 40 mg IVPUSH Q12H [facility] Last Admin: 11/03/23 06:05 Dose: 40 mg Documented By: GRISELDA Metoprolol Succinate (Metoprolol Succinate Er 25 Mg Tab.Er.24h) 25 mg PO DAILY [facility]; Protocol Ondansetron HCl (Ondansetron Hcl 4 Mg/2 Ml Vial) 4 mg IVPUSH Q8H PRN PRN Reason: Nausea and Vomiting Senna (Sennosides 8.6 Mg Tablet) 17.2 mg PO BEDTIME PRN PRN Reason: Constipation Senna (Sennosides 8.6 Mg Tablet) 8.6 mg PO BID [facility] Last Admin: 11/02/23 23:11 Dose: Not Given Documented By: GRISELDA Non-Admin Reason: Patient Asleep Senna (Sennosides 8.6 Mg Tablet) 8.6 mg PO DAILY PRN PRN Reason: Constipation Sodium Chloride (0.9 % Sodium Chloride Flush 3 Ml Syringe) 3 ml IVFLUSH QSHIFT [facility] Last Admin: 11/03/23 00:07 Dose: Not Given Documented By: GRISELDA Non-Admin Reason: IV Running Labs 11/03/23 04:20 11/03/23 04:20 Labs: Laboratory Results - last 24 hr 11/02/23 11/02/23 11/02/23 11:02 11:27 14:02 MCV MCH MCHC RDW Plt Count MPV Immature Gran % (Auto) Neut % (Auto) Lymph % (Auto) [place] % (Auto) Eos % (Auto) Baso % (Auto) Lymph # (Auto) [place] # (Auto) Eos # (Auto) Baso # (Auto) Abs Immat Gran (auto) Absolute Neuts (auto) Absolute Nucleated RBC Nucleated RBC % (auto) Anion Gap Estim Creat Clear Calc Estimated GFR Random Glucose Lactic Acid F/U @ 2Hr 1.0 Calcium Total Creatine Kinase Urine Color Dark Yellow Urine Appearance Clear Urine pH 7.0 Ur Specific [place] >= 1.030 H Urine Protein Trace Urine Glucose (UA) Negative Urine Ketones 15 Urine Blood Negative Urine Nitrite Negative Ur Leukocyte Esterase Trace H Urine RBC 0-2 Urine WBC 0-5 Ur Squamous Epith Cells 0-2 Urine Bacteria None Seen Hyaline Casts 0-2 Influenza Type A (PCR) NEGATIVE Influenza Type B (PCR) NEGATIVE RSV RNA Qual (PCR) NEGATIVE SARS-CoV-2 RNA (RT-PCR) NEGATIVE 11/03/23 04:20 MCV 91.2 MCH 31.0 MCHC 34.0 RDW 12.7 Plt Count 128 L MPV 10.3 Immature Gran % (Auto) 0.3 Neut % (Auto) 81.7 H Lymph % (Auto) 10.5 L [place] % (Auto) 7.3 Eos % (Auto) 0.0 Baso % (Auto) 0.2 Lymph # (Auto) 0.6 L [place] # (Auto) 0.4 Eos # (Auto) 0.0 Baso # (Auto) 0.0 Abs Immat Gran (auto) 0.02 Absolute Neuts (auto) 4.8 Absolute Nucleated RBC 0.000 Nucleated RBC % (auto) 0.0 Anion Gap 14 Estim Creat Clear Calc 105.1 Estimated GFR > 60 Random Glucose 123 H Lactic Acid F/U @ 2Hr Calcium 8.7 Total Creatine Kinase 1513 H Urine Color Urine Appearance Urine pH Ur Specific [place] Urine Protein Urine Glucose (UA) Urine Ketones Urine Blood Urine Nitrite Ur Leukocyte Esterase Urine RBC Urine WBC Ur Squamous Epith Cells Urine Bacteria Hyaline Casts Influenza Type A (PCR) Influenza Type B (PCR) RSV RNA Qual (PCR) SARS-CoV-2 RNA (RT-PCR) Assessment and Plan (1) Hydrocephalus: Status: Acute (2) Pneumonia: Status: Acute (3) Hypoxia: Status: Acute (4) Elevated CK: Status: Acute Plan 58-year-old male with history hyperlipidemia, mood disorder, hypertension, dysphagia, hypertensive retinopathy, cataract presented to the ED from [facility] where he resides admitted for pneumonia with acute hypoxemic respiratory #Acute pneumonia with acute hypoxemic respiratory failure and sepsis -febrile to 101, tachycardic, leukopenic to 3.7, tachypneic. Lactic acidosis due to dehydration, not severe sepsis. No end-organ damage. No severe sepsis/shock. Sepsis resolve -11/02 -IV ceftriaxone and azithromycin (initiated 11/01) -strep pneumo antigen, Legionella antigen, sputum culture pending -symptomatic management -follow CBC, cultures -continue supplemental O2 to maintain oximetry greater than 92% #Acute metabolic encephalopathy- mentation appears baseline per Dr. Enrique (biomedical instrument technician at [facility] where patient resides) -due to above- resolved -has required IM Zyprexa and lorazepam p.r.n. #Elevated CK -due to unwitnessed fall. No myalgias, not consistent with rhabdomyolysis -continue IVF -follow CK # unwitnessed fall -CT head shows possible evidence of NPH -per neurology, treat medical conditions, likely chronic. Outpt follow up # hypertension -blood pressure reasonably controlled -continue metoprolol # unspecified mood disorder s/p craniotomy -continue Depakote, Clozaril -last Clozaril level 168 at facility # HLD -statin DVT prophylaxis-Lovenox Full code Guardianship patient-Amy got about, [phone] Patient requires ongoing inpatient stay for management of acute pneumonia with hypoxemic respiratory failure and sepsis on IV antibiotics and requiring supplemental O2 Quality Stroke Does the patient have a stroke diagnosis?: No VTE Prior VTE?: No VTE Risk Level:: Medical - moderate - high VTE Device Contraindication: Treatment Not Indicated VTE Drug Contraindication: N/A - Med Ordered
--- NOTE | 2023-11-03 11:49 | PC.NURSE ---
this RN resumed care of pt at this time. vss and up to date. nsr on the veterans adviser. pt remains on 4L via NC at this time. no signs of apparent distress. no sob/wob noted. respirations even and unlabored. pt seemingly sleepy at this time - nonresponsive to verbal stimuli but responds well to physical. pt seemingly sleepy d/t IM medication administration overnight d/t pt being continuously restless. morning medication not administered d/t pt not being alert and oriented. per previous RN - JAYLENE Amato notified/aware of delay in medication administration. pt incontinent of urine. bedding/pads changed. fresh hospital attire applied. NS continues to infuse @ 80 mls/hr. pt waiting for bed assignment at this time. camera in place for safety precautions. plan of care ongoing. call roy placed within reach.
[2023-11-03] MEDS: Albuterol/Iprat 2.5/0.5MG 3 ML AMPUL.NEB INHALE ×2 (11:56→20:14)
--- NOTE | 2023-11-03 12:00 | PC.NURSE ---
pt receiving breathing treatment via RT at this time.
[2023-11-03] MEDS: Divalproex Sodium 250 MG TABLET.DR PO ×2 (12:44→23:30)
[2023-11-03] MEDS: Sennosides 8.6 MG TABLET PO ×2 (12:44→23:30)
[2023-11-03] MEDS: Docusate Sodium 100 MG CAPSULE PO ×2 (12:44→23:30)
[2023-11-03] MEDS: Metoprolol Succinate ER 25 MG TAB.ER.24H PO (12:44)
[2023-11-03] MEDS: Lactulose 20 GM/30 ML SOLUTION PO ×2 (12:45→23:30)
[2023-11-03] MEDS: Atorvastatin Calcium 10 MG TABLET PO (12:45)
[2023-11-03] MEDS: 0.9 % Sodium Chloride Flush 3 ML SYRINGE IVFLUSH (12:45)
--- NOTE | 2023-11-03 12:48 | PC.NURSE ---
medication administered per provider order.
[2023-11-03] MEDS: Azithromycin 500 MG in 0.9 % Sodium Chloride 250 ML 125 MG IV (14:55)
--- NOTE | 2023-11-03 14:56 | PC.NURSE ---
abx administered per provider order.
--- NOTE | 2023-11-03 14:58 | P.CNNE_ITS ---
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 His head CT revealed some changes prompting this consultation. He was unable to provide meaningful history. There was no evidence of any seizure. Review of Systems 2 Review of Systems: Could not be done with [facility] Past Medical History Medical History (Updated 11/03/23 @ 15:01 by Kenneth June MD) Mood disorder Dysphagia Hyperlipidemia Cataract Hypertensive retinopathy Hypertension Surgical History Surgical History (Updated 11/02/23 @ 16:33 by JAYLENE Bryant) S/P craniotomy Social History Social History (Updated 10/20/23 @ 08:21 by Radha Longoria PA-C) Household Members Other:: [facility]-since 2010 Alcohol intake: never Patient Tobacco Use Status: Never used Tobacco Smoked in Last 30 Days: No Advance Directives: No Advance Directives Information Provided: No service: No Current occupational status: disabled Meds Allergies Allergy/AdvReac Type Severity Reaction Status Date / Time No Known Allergies Allergy Verified 10/20/23 08:07 Active Medications: Current Medications Acetaminophen (Acetaminophen 325 Mg Tablet) 650 mg PO Q6H PRN PRN Reason: Pain, Mild (Pain Scale 1-3) Albuterol/Ipratropium (Albuterol/Iprat 2.5/0.5mg 3 Ml Ampul.Neb) 3 ml INHALE RQ4H WHILE AWAKE [facility] Last Admin: 11/03/23 11:56 Dose: 3 ml Atorvastatin Calcium (Atorvastatin Calcium 10 Mg Tablet) 10 mg PO DAILY [facility] Last Admin: 11/03/23 12:45 Dose: 10 mg Bisacodyl (Bisacodyl 10 Mg Supp.Rect) 10 mg [place] DAILY PRN PRN Reason: Constipation Clozapine (Clozapine 100 Mg Tablet) 100 mg PO BEDTIME [facility] Last Admin: 11/02/23 23:10 Dose: Not Given Divalproex Sodium (Divalproex Sodium 250 Mg Tablet.Dr) 250 mg PO BID [facility] Last Admin: 11/03/23 12:44 Dose: 250 mg Docusate Sodium (Docusate Sodium 100 Mg Capsule) 100 mg PO BID [facility] Last Admin: 11/03/23 12:44 Dose: 100 mg Enoxaparin Sodium (Enoxaparin Sodium 40 Mg/0.4 Ml Syringe) 40 mg SUBCUT Q24H [facility] Last Admin: 11/02/23 17:15 Dose: 40 mg Ceftriaxone Sodium 1 gm/ (Sodium Chloride) 50 mls @ 100 mls/hr IV Q24H [facility] Last Infusion: 11/02/23 20:21 Dose: Infused Azithromycin 500 mg/ Sodium (Chloride) 250 mls @ 125 mls/hr IV Q24H [facility] Last Admin: 11/03/23 14:55 Dose: 125 mls/hr Sodium Chloride (Ns) 1,000 mls @ 80 mls/hr IVCONT .[id number] [facility] Last Admin: 11/03/23 06:05 Dose: 80 mls/hr Lactulose (Lactulose 20 Gm/30 Ml Solution) 20 gm PO BID [facility] Last Admin: 11/03/23 12:45 Dose: 20 gm Methylprednisolone Sodium Succinate (Methylprednisolone Sod Succ 40 Mg/Ml Vial) 40 mg IVPUSH Q12H [facility] Last Admin: 11/03/23 06:05 Dose: 40 mg Metoprolol Succinate (Metoprolol Succinate Er 25 Mg Tab.Er.24h) 25 mg PO DAILY [facility]; Protocol Last Admin: 11/03/23 12:44 Dose: 25 mg Ondansetron HCl (Ondansetron Hcl 4 Mg/2 Ml Vial) 4 mg IVPUSH Q8H PRN PRN Reason: Nausea and Vomiting Senna (Sennosides 8.6 Mg Tablet) 17.2 mg PO BEDTIME PRN PRN Reason: Constipation Senna (Sennosides 8.6 Mg Tablet) 8.6 mg PO BID [facility] Last Admin: 11/03/23 12:44 Dose: 8.6 mg Senna (Sennosides 8.6 Mg Tablet) 8.6 mg PO DAILY PRN PRN Reason: Constipation Sodium Chloride (0.9 % Sodium Chloride Flush 3 Ml Syringe) 3 ml IVFLUSH QSHIFT [facility] Last Admin: 11/03/23 12:45 Dose: 3 ml Home Medications Medication Instructions Recorded Confirmed Last Taken Type acetaminophen 325 mg tablet 650 mg PO Q4H PRN Fever Or Pain 11/02/23 11/02/23 Unknown History atorvastatin 10 mg tablet 10 mg PO DAILY 11/02/23 11/02/23 Unknown History bisacodyl 10 mg rectal suppository 10 mg [place] DAILY PRN Constipation 11/02/23 11/02/23 Unknown History clozapine 100 mg tablet 100 mg PO BEDTIME 11/02/23 11/02/23 11/01/23 History divalproex 250 mg tablet,delayed 250 mg PO BID 11/02/23 11/02/23 Unknown History release docusate sodium 100 mg capsule 100 mg PO BID 11/02/23 11/02/23 Unknown History ketoconazole 2 % shampoo 1 appl topical MOWEFR 11/02/23 11/02/23 Unknown History lactulose 10 gram/15 mL oral 20 g PO BID 11/02/23 11/02/23 Unknown History solution metoprolol succinate 25 mg 25 mg PO DAILY 11/02/23 11/02/23 Unknown History tablet,extended release 24 hr phenylephrine-shark liver 1 appl [place] Q8H PRN rectal bleeding 11/02/23 11/02/23 Unknown History oil-mineral oil-petrolatum rectal ointment (Hemorrhoidal ointment) sennosides 8.6 mg tablet (senna) 8.6 mg PO BID 11/02/23 11/02/23 Unknown History sennosides 8.6 mg tablet (senna) 8.6 mg PO DAILY PRN Constipation 11/02/23 11/02/23 Unknown History sodium phosphates 19 gram-7 118 ml [place] DAILY PRN Constipation 11/02/23 11/02/23 Unknown History gram/118 mL enema (Fleet Enema) Physical Exam 2 Vital Signs: Vital Signs: Last Vital Signs Temp 97.6 F 11/03/23 11:39 Pulse 92 11/03/23 11:58 Resp 18 11/03/23 11:58 BP 98/61 11/03/23 11:39 Pulse Ox 93 11/03/23 11:39 O2 Del Method Nasal Cannula 11/03/23 11:39 O2 Flow Rate 4 11/03/23 11:39 BMI result Body Mass Index 27.2 Neuro: Other: He was sleepy but able to wake up look around made eye contact and spoke answering simple questions. There was no obvious focal weakness. Plantars were flexor. Face was symmetrical. Visual feliz are full. Results Labs 11/03/23 04:20 11/03/23 04:20 Labs: Short CBC 11/03/23 Range/Units 04:20 WBC 5.9 (4.8-10.8) X10*3/uL Hgb 15.2 (14.0-18.0) g/dl Hct 44.7 (42.0-52.0) % Plt Count 128 L (160-400) X10*3/uL BMP 11/03/23 04:20 Sodium 138 Potassium 4.6 D Chloride 104 Carbon Dioxide 25 BUN 6 L Creatinine 0.80 Calcium 8.7 Cardiac Enzymes 11/03/23 Range/Units 04:20 Total Creatine Kinase 1513 H (38-174) U/L noncontrast head CT revealed evidence of left-sided craniotomy right frontal encephalomalacia and significant ventriculomegaly with microvascular disease Microbiology Microbiology Results: Microbiology 11/02/23 11:02 Blood - Venous Blood Culture - Preliminary No growth after 24 hours. 11/02/23 10:49 Blood - Venous Blood Culture - Preliminary No growth after 24 hours. Assessment and Plan (1) Hydrocephalus: Qualifiers: Hydrocephalus type: unspecified Qualified Code(s): G91.9 - Hydrocephalus, unspecified Status: Acute 58 years old man who is head CT suggested evidence of craniotomy right frontal encephalomalacia and large ventricles suggestive of hydrocephalus. These findings seem to be chronic in nature and not directly related to his present illness. My recommendation is to investigated and treat his medical conditions. No intervention is needed for brain pathology at this time. Procedures Date of Service Date of Service: 11/03/23
[2023-11-03] MEDS: Enoxaparin Sodium 40 MG/0.4 ML SYRINGE SUBCUT (17:17)
--- NOTE | 2023-11-03 17:44 | PC.NURSE ---
Report given to Myesha JACOBS in Overflow 3.
--- NOTE | 2023-11-03 18:07 | PC.NURSE ---
pt remains in main ed. received report. awaiting pt.
--- NOTE | 2023-11-03 18:31 | PC.NURSE ---
using tanzanian director experimental medicine via iPad to introduce and evaluate pt. pt denies pain/sob. resting calmly. piv to l arm c/d/i.
--- NOTE | 2023-11-03 18:46 | PC.NURSE ---
confirmed w observation room pt is in camera view of monitor techs upstairs. pt declined dinner/snack via translator and interpreter ipad.
--- NOTE | 2023-11-03 19:14 | PC.NURSE ---
pt came over from ed on 4L NC- attempted to titrate to 2L NC, 90% on 2n 2L w/o any resp distress. placed back on 4L that pt was sent over on. used ui ux engineer again to talk w pt. no wall call roy in room available as there is no powersaw supervisor in the wall- selling manager tram aware- given a portable roy. pt assisted w the bathroom- urine incontinence- dwayne care given by rn/tech. repositioned. new gown/pad.
[2023-11-03] MEDS: cefTRIAXone sodium 1 GM in 0.9 % Sodium Chloride 50 ML IV (19:54)
--- NOTE | 2023-11-03 20:03 | PC.NURSE ---
used enterprise sales person sharron on ipad to explain pt about antibiotic administration. call ryo in reach and aware how to use
--- NOTE | 2023-11-03 20:50 | PC.NURSE ---
provider enoch sauceda notified pt remains on the 4L he was on from ED. this rn tried to do 2L but went to 90%.. he is now 94% on 4L, maintaining w his goal of >92% o2 sat.
[2023-11-04] MEDS: 0.9 % Sodium Chloride 1,000 ML 100 ML IVCONT ×2 (03:44→13:13)
[2023-11-04] MEDS: methylPREDNISolone Sod Succ 40 MG/ML VIAL IVPUSH ×2 (06:07→19:31)
[2023-11-04] MEDS: Sennosides 8.6 MG TABLET PO ×2 (09:19→20:31)
[2023-11-04] MEDS: Atorvastatin Calcium 10 MG TABLET PO (09:19)
[2023-11-04] MEDS: Docusate Sodium 100 MG CAPSULE PO ×2 (09:19→20:31)
[2023-11-04] MEDS: Lactulose 20 GM/30 ML SOLUTION PO ×2 (09:19→20:32)
[2023-11-04] MEDS: Metoprolol Succinate ER 25 MG TAB.ER.24H PO (09:19)
--- NOTE | 2023-11-04 09:36 | MHC.EDTECH ---
Pt had a BM on the commode. Complete bed change. Pt is washed up and back in bed. RN at bedside giving meds.
--- NOTE | 2023-11-04 09:38 | MHC.EDTECH ---
pt ate 100% of his breakfast and 240cc of fluids.
[2023-11-04] MEDS: Divalproex Sodium 250 MG TABLET.DR PO ×2 (09:53→20:31)
--- NOTE | 2023-11-04 10:40 | PC.NURSE ---
Pt jumped up and attempted to get out of bed, this production underwriter and the ARMORING MACHINE OPERATOR used the electronic organ technician via tablet but the communication was ineffective. We both assisted the pt to the bedside commode, large bm. Pt was washed up and complete bed change done. Pt compliant with all care and taking meds. He ate 100% of his breakfast. Pt resting quietly in bed, no apparent distress. Will continue to observe.
[2023-11-04] MEDS: Albuterol/Iprat 2.5/0.5MG 3 ML AMPUL.NEB INHALE ×3 (11:49→19:47)
[2023-11-04 11:50] VITALS: PULSE 98; RESP 16; O2SAT 88
[2023-11-04 11:53] VITALS: BP 131/81; PULSE 97; RESP 18; TEMP 37.1; O2SAT 91
--- NOTE | 2023-11-04 12:25 | MHC.EDTECH ---
Pt jumped up and started to urinate, attempted to have pt use urinal with no success. Complete bedding change and dwayne care done. RN aware
--- NOTE | 2023-11-04 14:01 | MHC.EDTECH ---
Assisted pt oob to bedside commode. Pt had large amount of watery diarrhea. Assisted back to bed. RN aware
--- NOTE | 2023-11-04 14:38 | P.PNIM_ITS ---
Subjective Subjective Date of Service: 11/04/23 Interval History: No acute issues overnight. 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 Denies chest pain Denies shortness of breath Denies nausea vomiting diarrhea Denies fever chills Physical Exam 2 Vital Signs: Vital Signs: Last Vital Signs Temp 98.7 F 11/04/23 11:53 Pulse 97 11/04/23 11:53 Resp 18 11/04/23 11:53 BP 131/81 11/04/23 11:53 Pulse Ox 91 L 11/04/23 11:53 O2 Del Method Nasal Cannula 11/03/23 21:16 O2 Flow Rate 4 11/03/23 21:16 BMI result Body Mass Index 27.2 Const: Other: Awake alert no acute distress Resp: Other: Diminished at bases with diffuse expiratory wheezes Cardio: Other: No S4; positive S1-S2; no S3 murmurs rubs or gallops GI: Other: Soft nontender nondistended normoactive bowel sounds Extrem: Other: No edema bilaterally Objective Data Active Medications Acetaminophen (Acetaminophen 325 Mg Tablet) 650 mg PO Q6H PRN PRN Reason: Pain, Mild (Pain Scale 1-3) Albuterol/Ipratropium (Albuterol/Iprat 2.5/0.5mg 3 Ml Ampul.Neb) 3 ml INHALE RQ4H WHILE AWAKE [facility] Last Admin: 11/04/23 11:49 Dose: 3 ml Documented By: SULLY Atorvastatin Calcium (Atorvastatin Calcium 10 Mg Tablet) 10 mg PO DAILY [facility] Last Admin: 11/04/23 09:19 Dose: 10 mg Documented By: JONAS Bisacodyl (Bisacodyl 10 Mg Supp.Rect) 10 mg [place] DAILY PRN PRN Reason: Constipation Clozapine (Clozapine 100 Mg Tablet) 100 mg PO BEDTIME [facility] Last Admin: 11/03/23 23:30 Dose: Not Given Documented By: KENTON Non-Admin Reason: Med Not Available Divalproex Sodium (Divalproex Sodium 250 Mg Tablet.) 250 mg PO BID [facility] Last Admin: 11/04/23 09:53 Dose: 250 mg Documented By: JONAS Docusate Sodium (Docusate Sodium 100 Mg Capsule) 100 mg PO BID [facility] Last Admin: 11/04/23 09:19 Dose: 100 mg Documented By: JONAS Enoxaparin Sodium (Enoxaparin Sodium 40 Mg/0.4 Ml Syringe) 40 mg SUBCUT Q24H [facility] Last Admin: 11/03/23 17:17 Dose: 40 mg Documented By: СЕРГЕЙ Ceftriaxone Sodium 1 gm/ (Sodium Chloride) 50 mls @ 100 mls/hr IV Q24H [facility] Last Infusion: 11/03/23 20:31 Dose: Infused Documented By: MG Azithromycin 500 mg/ Sodium (Chloride) 250 mls @ 125 mls/hr IV Q24H [facility] Last Infusion: 11/03/23 17:06 Dose: Infused Documented By: СЕРГЕЙ Sodium Chloride (Ns) 1,000 mls @ 100 mls/hr IVCONT .Q10H [facility] Last Admin: 11/04/23 13:13 Dose: 100 mls/hr Documented By: JONAS Lactulose (Lactulose 20 Gm/30 Ml Solution) 20 gm PO BID [facility] Last Admin: 11/04/23 09:19 Dose: 20 gm Documented By: JONAS Methylprednisolone Sodium Succinate (Methylprednisolone Sod Succ 40 Mg/Ml Vial) 40 mg IVPUSH Q12H [facility] Last Admin: 11/04/23 06:07 Dose: 40 mg Documented By: KENTON Methylprednisolone Sodium Succinate (Methylprednisolone Sod Succ 125 Mg/2 Ml Vial) 60 mg IVPUSH Q6H [facility] Metoprolol Succinate (Metoprolol Succinate Er 25 Mg Tab.Er.24h) 25 mg PO DAILY [facility]; Protocol Last Admin: 11/04/23 09:19 Dose: 25 mg Documented By: JONAS Ondansetron HCl (Ondansetron Hcl 4 Mg/2 Ml Vial) 4 mg IVPUSH Q8H PRN PRN Reason: Nausea and Vomiting Senna (Sennosides 8.6 Mg Tablet) 17.2 mg PO BEDTIME PRN PRN Reason: Constipation Senna (Sennosides 8.6 Mg Tablet) 8.6 mg PO BID [facility] Last Admin: 11/04/23 09:19 Dose: 8.6 mg Documented By: JONAS Senna (Sennosides 8.6 Mg Tablet) 8.6 mg PO DAILY PRN PRN Reason: Constipation Sodium Chloride (0.9 % Sodium Chloride Flush 3 Ml Syringe) 3 ml IVFLUSH QSHIFT [facility] Last Admin: 11/04/23 09:00 Dose: Not Given Documented By: JONAS Non-Admin Reason: IV Running Labs 11/03/23 04:20 11/03/23 04:20 Microbiology Microbiology Results: Microbiology 11/02/23 11:02 Blood Culture - Preliminary Blood - Venous No growth after 48 hours. 11/02/23 10:49 Blood Culture - Preliminary Blood - Venous No growth after 48 hours. Assessment and Plan (1) Pneumonia: Status: Acute (2) Rhabdomyolysis: Status: Acute (3) Hypertension: Status: Acute Plan 58-year-old male with history hyperlipidemia, mood disorder, hypertension, dysphagia, hypertensive retinopathy, cataract presented to the ED from [facility] where he resides admitted for pneumonia with acute hypoxemic respiratory failure 1.Acute pneumonia with acute hypoxemic respiratory failure (sepsis resolved) -IV ceftriaxone and azithromycin (2) -strep pneumo antigen, Legionella antigen, sputum culture pending -pulse dose methylprednisolone -continue supplemental O2 to maintain oximetry greater than 92% 2.Acute metabolic encephalopathy- mentation appears baseline per Dr. Enrique (medical resident at [facility] where patient resides) -due to above- resolved -has required IM Zyprexa and lorazepam p.r.n. 3.Elevated CK -resolving with volume -follow in a.m. 4.Hypertension -blood pressure reasonably controlled -continue metoprolol Lovenox Full code Guardianship patient-Amy got about, [phone] Patient requires ongoing inpatient stay for management of acute pneumonia with hypoxemic respiratory failure and sepsis on IV antibiotics and requiring supplemental O2 Quality Stroke Does the patient have a stroke diagnosis?: No VTE Prior VTE?: No VTE Risk Level:: Medical - moderate - high VTE Device Contraindication: Treatment Not Indicated VTE Drug Contraindication: N/A - Med Ordered
[2023-11-04] MEDS: Azithromycin 500 MG in 0.9 % Sodium Chloride 250 ML 125 MG IV (15:10)
[2023-11-04 16:04] VITALS: PULSE 108; RESP 18; O2SAT 92
[2023-11-04] MEDS: methylPREDNISolone Sod Succ 125 MG/2 ML VIAL IVPUSH (16:21)
[2023-11-04] MEDS: Enoxaparin Sodium 40 MG/0.4 ML SYRINGE SUBCUT (16:21)
--- NOTE | 2023-11-04 19:06 | PC.NURSE ---
Pt removed peripheral IV from L[facility]. Solu-medrol given late d/t no iv access. Iv fluids paused at this time. Oncoming RN aware and is in the process of inserting an iv.
[2023-11-04] MEDS: cefTRIAXone sodium 1 GM in 0.9 % Sodium Chloride 50 ML IV (19:32)
[2023-11-04 19:44] VITALS: BP 113/68; PULSE 85; RESP 16; TEMP 36.4; O2SAT 93
[2023-11-04 19:47] VITALS: PULSE 87; RESP 16; O2SAT 93
[2023-11-04] MEDS: cloZAPine 100 MG TABLET PO (20:31)
--- NOTE | 2023-11-05 00:33 | PC.NURSE ---
Assumed care of this Pt at this time. Pt appears to be sleeping, equal, non labored respirations, no apparent distress. IV fluids running per MAR. Plan of care on going.
[2023-11-05 03:15] VITALS: RESP 16
[2023-11-05 05:23] VITALS: BP 129/83; PULSE 87; RESP 16; TEMP 36.6; O2SAT 96
[2023-11-05] MEDS: methylPREDNISolone Sod Succ 40 MG/ML VIAL IVPUSH (05:35)
[2023-11-05] MEDS: methylPREDNISolone Sod Succ 125 MG/2 ML VIAL 60 MG IVPUSH ×2 (05:35→12:48)
--- NOTE | 2023-11-05 06:10 | PC.NURSE ---
2 assist to beside commode.
[2023-11-05] MEDS: Albuterol/Iprat 2.5/0.5MG 3 ML AMPUL.NEB INHALE ×2 (07:41→11:28)
[2023-11-05 07:42] VITALS: PULSE 88; RESP 16; O2SAT 92
--- NOTE | 2023-11-05 08:56 | PC.NURSE ---
patient remains asleep, respirations equal and unlabored.
--- NOTE | 2023-11-05 10:08 | MHC.EDTECH ---
patient did not want to eat and wash up at the moment wants to sleep
[2023-11-05] MEDS: Sennosides 8.6 MG TABLET PO (10:12)
[2023-11-05] MEDS: Docusate Sodium 100 MG CAPSULE PO (10:12)
[2023-11-05] MEDS: Divalproex Sodium 250 MG TABLET.DR PO (10:12)
[2023-11-05] MEDS: Atorvastatin Calcium 10 MG TABLET PO (10:12)
[2023-11-05] MEDS: Metoprolol Succinate ER 25 MG TAB.ER.24H PO (10:13)
[2023-11-05] MEDS: Lactulose 20 GM/30 ML SOLUTION PO (10:13)
--- NOTE | 2023-11-05 10:18 | PC.NURSE ---
patient sitting up and eating breakfast, medictated per mar, respirations equal and unlabored, skin dry and intact, IV patent and in place
--- NOTE | 2023-11-05 10:33 | MHC.EDTECH ---
patient woke up assisted him to the commode and got washed up with complete bed change and ate 100% breakfast
--- NOTE | 2023-11-05 10:38 | MHC.EDTECH ---
pt was assisted in brushing teeth
[2023-11-05 11:30] VITALS: PULSE 86; RESP 16; O2SAT 87
--- NOTE | 2023-11-05 12:14 | MHC.EDTECH ---
patient ate lunch 100%
--- NOTE | 2023-11-05 13:34 | PM.DS ---
DS: Providers Provider Date of Service: 11/05/23 Date of admission: 11/02/23 16:05 Date of discharge: 11/05/23 Primary care physician: Kevin Enrique DO Consults: 11/02/23 16:26 Consult to Neurology Routine Consulting Provider: [facility] Reason for consultation: multiple falls, ct evidence nph DS: Diagnosis Discharge Diagnosis (1) Pneumonia: Status: Acute (2) Rhabdomyolysis: Status: Acute (3) Hypertension: Status: Acute DS: Summary Hospital Course Hospital Course: 58-year-old male with history hyperlipidemia, mood disorder, hypertension, dysphagia, hypertensive retinopathy, cataract presented to the ED from [facility] where he resides due to altered mental status and unwitnessed fall. The patient is [place] speaking only and shell molding roller blast operator [id number], Ramesh, was used for [place] interpretation. The patient is a limited historian and reports he feels fine and does not know why he is in the hospital. Per facility report, the patient was found on the ground after an unspecified period of time and was altered from baseline. At baseline, patient is conversive, ambulating with walker. Vitals were stable at facility. However on arrival, patient was hypoxic to 88% was placed on 4 L supplemental O2 maintaining oximetry 93-94%. On exam, patient is refusing to wears oxygen and oxygen levels continue to dip to 88-89% on room air but then normalized to 90-92%. He is tachycardic to 110 and was febrile to 101 on arrival. He has been intermittently tachypneic. No hypotension. He is leukopenic to 3.7. Renal function normal, electrolyte levels normal. Initial lactic acid 2.5, repeat 1. Total CK 1674. Urinalysis unremarkable. Negative for influenza, COVID-19, RSV. Head CT negative for any acute intracranial abnormality shows chronic postoperative changes following left parietotemporal craniotomy with chronic encephalomalacia and gliosis. There is also severe lateral and 3rd ventriculomegaly that is disproportionate to sulcal prominence with associated narrowing of the callosal angle that can be correlated for clinical signs of normal pressure hydrocephalus. CT cervical spine negative for any osseous abnormality. CXR shows patchy, ill-defined opacity at left lung base possibly representing pneumonia. Hospital course Admitted to general medical floor and started on ceftriaxone and azithromycin. Neurology was consulted for CT findings but felt these were chronic in nature. He was also started on pulse dose Solu-Medrol. Over the course of the next 48 hours he no longer had an O2 requirement in his exam had markedly improved. At this point in time I think he is medically acceptable and would benefit from transport back to [facility] where I will follow him there Time Attestation Discharge Coordination Time (in mins): 35 Quality: Safe Use of Opioids Does Pt have an Active Cancer Diagnosis on the Problem List?: No Quality: Stroke Does the patient have a stroke diagnosis?: No Physical Exam Vital Signs: Vital Signs: Last Vital Signs Temp 97.8 F 11/05/23 05:23 Pulse 86 11/05/23 11:30 Resp 16 11/05/23 11:30 BP 129/83 11/05/23 05:23 Pulse Ox 96 11/05/23 05:23 O2 Del Method Room Air 11/05/23 05:23 O2 Flow Rate 2 11/04/23 19:44 BMI result Body Mass Index 27.2 Const: Other: Awake alert no acute distress Resp: Other: Diminished at bases with diffuse expiratory wheezes Cardio: Other: No S4; positive S1-S2; no S3 murmurs rubs or gallops GI: Other: Soft nontender nondistended normoactive bowel sounds Extrem: Other: No edema bilaterally DS: Data Data Completed and Pending Labs on day of discharge: Preliminary micro results at discharge 11/02/23 11:02 Blood Culture - Preliminary Blood - Venous No growth after 48 hours. 11/02/23 10:49 Blood Culture - Preliminary Blood - Venous No growth after 48 hours. Discharge Plan Discharge Anticipated Discharge Date/Time: 11/05/23 13:14 Patient Disposition: er [facility] Discharge Diagnosis: Left lung infiltrate Referrals: [facility] [Outside] - 1 Week Kevin Enrique DO [Primary Care Provider] - 1 Week Discharge Medications: New doxycycline hyclate 100 mg tablet 100 mg PO BID Qty: 20 0RF prednisone 20 mg tablet See Rx Instructions .Route .COMPLEX Qty: 18 0RF Rx Instructions: 20 mg orally; 3 tabs daily for 3 days, 2 tabs daily for 3 days, 1 tab daily for 3 days Continued sennosides [senna] 8.6 mg Tablet 8.6 mg PO DAILY PRN (Reason: Constipation) Rx Instructions: give in applesauce sennosides [senna] 8.6 mg Tablet 8.6 mg PO BID Rx Instructions: give in applesauce acetaminophen 325 mg Tablet 650 mg PO Q4H PRN (Reason: Fever Or Pain) ketoconazole 2 % Shampoo 1 appl TOPICAL MOWEFR divalproex 250 mg Tablet,Delayed Release (Dr/Ec) 250 mg PO BID atorvastatin 10 mg Tablet 10 mg PO DAILY clozapine 100 mg Tablet 100 mg PO BEDTIME bisacodyl 10 mg Suppository 10 mg IA DAILY PRN (Reason: Constipation) Rx Instructions: if Senna is ineffective Fleet Enema 19-7 gram/118 mL Enema 118 ml IA DAILY PRN (Reason: Constipation) Rx Instructions: if Dulcolax is ineffective docusate sodium 100 mg Capsule 100 mg PO BID metoprolol succinate 25 mg Tablet Extended Release 24 Hr 25 mg PO DAILY Hemorrhoidal Ointment 1 appl IA Q8H PRN (Reason: rectal bleeding) Rx Instructions: up to 2 times daily lactulose 10 gram/15 mL Solution 20 g PO BID Rx Instructions: for elevated ammonia level Discharge Orders: Discharge Order (Routine); Ordered 11/05/23 Ordered By: Kevin Enrique Diet: Advance to usual diet Activity on Discharge: As tolerated Stand Alone Forms: Patient Portal Discharge page Care Plan Goals: Resume all medicines as taken prior to hospital Health Concerns: Complete course of doxycycline and prednisone taper as ordered Plan of Treatment: Resume previous plan of care [facility] Assessment: See discharge summary
--- NOTE | 2023-11-05 13:41 | MHC.CM.PN ---
Received notification from Dr Enrique that patient can be d/c'd back to [facility]. Mihai GARCIA booked. Med [facility] with chart. Message left on guardian, Amy Tavares's voicemail at [phone]. explaining patient would be returning to [facility]. Najma RN aware. Continue to monitor for d/c needs.
[2023-11-05 14:00] VITALS: BP 129/88; PULSE 86; RESP 20; TEMP 36.5; O2SAT 92
--- NOTE | 2023-11-05 14:58 | PC.NURSE ---
Nurse to Nurse called to [facility] [place] unit and gave report to Nuvia JACOBS regarding his discharge plan.
[2023-11-05 15:02] VITALS: BP 179/88; PULSE 86; RESP 20; TEMP 36.5; O2SAT 92
[2023-11-07 00:38] LABS: Strep Pneumo Ag urine Not Detected (Not Detected)
[2023-11-10 01:23] LABS: Legionella Ag Urine Not Detected (Not Detected)
== END 2023-11-05 21:00 | DRG 720 ==
LOC: HO.ED 15:36 → HO.EDOVER 16:13
PROVIDERS: Admitting Provider Physician Assistant; Emergency Provider Emergency Medicine; PCP Hospitalist; Visit Provider Hospitalist
DX: A41.9 Sepsis, unspecified organism (principal); J96.01 Acute respiratory failure with hypoxia; G93.41 Metabolic encephalopathy; G93.49 Other encephalopathy; J18.9 Pneumonia, unspecified organism; G91.2 (Idiopathic) normal pressure hydrocephalus; M62.82 Rhabdomyolysis; E86.0 Dehydration; F39 Unspecified mood [affective] disorder; T81.89XS Other complications of procedures, not elsewhere classified, sequela; Y83.8 Other surgical procedures as the cause of abnormal reaction of the patient, or of later complication, without mention of misadventure at the time of the procedure; Z20.822 Contact with and (suspected) exposure to COVID-19; Z79.899 Other long term (current) drug therapy
CPT/HCPCS: 0241U; 36415; 70450; 71045; 72125; 80048; 80053; 81001; 82550; 83605; 85025; 87040; 87449; 87899; 94640; 99285; J0456; J0696; J1650; J2060; J2359; J2543; J2920; J2930

== ENCOUNTER → 2023-11-02 16:05 | Outpatient (BNV) | payer MEDICAID, SELFPAY | PROVIDERS: Admitting Provider Physician Assistant; Emergency Provider Emergency Medicine; PCP Hospitalist; Visit Provider Physician Assistant | DX: G91.9 Hydrocephalus, unspecified (principal); J18.9 Pneumonia, unspecified organism; J96.01 Acute respiratory failure with hypoxia; R74.8 Abnormal levels of other serum enzymes | CPT/HCPCS: 99223; 99232; 99233; 99239 ==

== ENCOUNTER → 2023-11-02 16:05 | Outpatient (BNV) | payer MEDICAID, SELFPAY | PROVIDERS: Admitting Provider Physician Assistant; Emergency Provider Emergency Medicine; PCP Hospitalist; Visit Provider Psychiatry & Neurology Neurology | DX: G91.9 Hydrocephalus, unspecified (principal); Z98.890 Other specified postprocedural states | CPT/HCPCS: 99222 ==